=== PATIENT | male | born 1985 | race Caucasian/White ===

== ENCOUNTER 2017-12-14 13:50 | Emergency (ER) | payer SELFPAY ==
[~2017-12-14] VITALS: Ht 154.9 cm; Wt 78.1 kg
[2017-12-14 13:54] VITALS: TEMP 36.7; Ht 154.9 cm; Wt 78.1 kg
[2017-12-14] MEDS ORDERED: DEXAMETHASONE **PF** INJ 10 MG/ML VIAL IM ONE (14:30)
[2017-12-14] MEDS ORDERED: DEXAMETHASONE SOD INJ 10 MG/ML VIAL ONE (14:35)
[2017-12-14] MEDS ORDERED: PRED20TA PO (14:36)
--- NOTE | 2017-12-14 14:36 | EMERGENCY ROOM VISIT NOTE ---
ED Visit Note First contact with patient: 13:58 CHIEF COMPLAINT: Right hand redness, swelling and itching 2 days HPI: Patient is a [id number] 32-year-old male who presents the emergency department for evaluation of swelling, redness and itching to the right hand. He states his symptoms started about 2 days ago. 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 He states that he was working in [place] a couple of days ago. He went back to the hotel that evening after working, and states that he went to bed. He woke a couple hours later because the palms of his hands and the tops of his feet were very itchy. He describes it as a "burning" pain. He got out of bed and took a hot bath then showered and put on clean clothes. When he woke up in the morning , his symptoms had resolved except for the swelling and redness in the right hand, primarily the dorsum. He started taking Benadryl and ibuprofen, but his symptoms are not improving. He also noticed a small scabbed over area near the ulnar right wrist, which appeared to him to be some type of insect bite or sting. He denies any well-defined urticaria, no other skin rashes or lesions. No fever, chills or malaise. He does stay in hotels and is using the linens and towels from the hotels, but has not changed any of his own personal hygiene items or detergents. He has not had any change in the products that he is using for work. He has not been ill with any cold or upper respiratory symptoms. He denies any trauma to the area. He denies any IV drug use. He has never had symptoms similar to this previously. He denies fever or chills. REVIEW OF SYSTEMS: Review of systems as per HPI. All other systems reviewed were negative. 10 systems reviewed. . PMH: Electronic medical records are reviewed and summarized as above/below. See Problem List. SOCIAL HISTORY: Patient is and originally from [place], travels 9 months out of the year for work. Positive tobacco use, denies alcohol. PHYSICAL EXAM: Vital Signs: Reviewed Nurse's notes. CONSTITUTIONAL: Patient is a well-appearing 32-year-old male in no acute distress. HEART: Regular rate and rhythm. LUNGS: Clear to auscultation. MUSCULOSKELETAL: Examination of the right hand notes dorsal soft tissue swelling. There is a small, scabbed over wound on the ulnar aspect of the wrist , that is slightly tender to palpation. The dorsum of the hand is slightly warm although not overtly hot to the touch. Skin is otherwise intact with slight erythema, no overt cellulitic changes. There is no fracture crepitus appreciated. Wrist is nontender and range of motion is full. Range of motion of the fingers is limited only by soft tissue swelling. Patient has multiple calluses noted on the palms of his hands, but no lesions noted there. Muscle bellies of the forearm are soft and nontender. No lymphangitic streaking appreciated. Multiple tattoos are noted without signs of infection. ED course: The patient was seen and assessed as above. He does appear to be experiencing a localized allergic reaction, possibly related to some type of insect/spider bite or sting. I did discuss radiographs with him, but he denies the chance of trauma does not suspect fracture and therefore he declines. His findings are not consistent with DVT, superficial thrombophlebitis or cellulitis , but all were considered. I do not suspect abscess or tenosynovitis. The patient was treated with Decadron 10 mg IM. He will be placed on a course of prednisone. Continue conservative care measures were discussed. He was encouraged to seek further care if his symptoms are not improving. Medication reconciliation: I attest that I have personally reviewed the patient' s current medication list. Blood pressure screening : Patient was found to have normal blood pressure on screening and does not require follow-up. Current/Historical Medications Scheduled Prednisone (Prednisone), 0 PO DAILY Allergies Coded Allergies: No Known Allergies (Unverified , 12/14/17) Vital Signs Date Time Temp Pulse Resp B/P (MAP) Pulse Ox O2 Delivery O2 Flow Rate FiO2 12/14/17 14:37 81 18 137/74 98 Room Air 12/14/17 13:54 36.7 88 20 133/86 99 Room Air Medications Administered Medications (Trade) Dose Ordered Sig/Melchor Route Start Time Stop Time Status Last Admin Dose Admin Dexamethasone Sodium Phosphate (Dexamethasone Inj Pf) 10 mg NOW ONCE IM 12/14/17 14:30 12/14/17 14:31 DC 12/14/17 14:30 10 MG Departure Information Impression Primary Impression: Allergic reaction Prescriptions Prednisone (Prednisone) 20 Mg Tab 0 PO DAILY, #18 TAB 3 DAILY FOR 3 DAYS, THEN 2 DAILY FOR 3 DAYS, THEN 1 DAILY FOR 3 DAYS. Prov: Fadumo Sifuentes PA 12/14/17 Patient Instructions My [facility] Additional Instructions Prednisone 20mg: Once daily until the prescription is finished. It is best to take this earlier in the day as some patients note occasional difficulty falling asleep when taken in the late evening. Diphenhydramine(Benadryl) 25mg: use 25 to 50 mg as needed every six hours for swelling, itching, or hives. This medication is sedating and will cause drowsiness. Avoid alcohol, operating machinery or dangerous equipment, working on ladders or roofs, DRIVING , or situations where being under the influence may be dangerous. Zantac 75: Take two pills twice a day along with Benadryl as needed for swelling , itching, or hives. Most people know this for its affect on the stomach, but it also acts similar to, but less potent than Benadryl for allergic reactions. Both the Benadryl and the Zantac are available [id number]. Continue current medications. Return to the emergency department for worsening of your rash, swelling of your face, lips, tongue, or throat, difficulty breathing, vomiting, or as needed. Follow-up with your primary care physician in 2-3 days for a recheck of your current condition. Problem Qualifiers Primary Impression: Allergic reaction Encounter type: initial encounter Qualified Codes: T78.40XA - Allergy, unspecified, initial encounter
[2017-12-14 14:37] VITALS: BP 137/74; PULSE 81; O2SAT 98
== END 2017-12-14 14:50 | disposition home or self-care (01) ==
LOC: C.EDB 13:53 → C.EDC 14:50
DX: T78.40XA Allergy, unspecified, initial encounter (principal); X58.XXXA Exposure to other specified factors, initial encounter